=== PATIENT | male | born 1985 | race Caucasian/White ===

== ENCOUNTER 2017-12-03 05:13 | Day surgery (SDC) | payer OTHER ==
[2017-12-01 16:11] VITALS: BMI 34.9
--- NOTE | 2017-12-03 10:19 | HP ---
[facility] - Chief Complaint Chief Complaint: right hand fx - Past Medical History Allergies/Adverse Reactions: Allergies Allergy/AdvReac Type Severity Reaction Status Date / Time No Known Allergies Allergy Verified 12/01/17 16:04 - Current Medications Current Medications: Home Medications Medication Instructions Recorded Ibuprofen [Motrin -] 600 mg PO QID #28 tablet 09/20/16 Oxycodone HCl 5 mg PO 12/01/17 Satellite Physical Exam - Physical Examination General Appearance: Well Nourished, Well Developed, Alert & Oriented x3 ENT: Clear Lung: Normal air movement Heart: Regular rate & rhythm Neurological: Intact (right wrist- + swelling, + ttp, decr rom, nvi Ct scan- + 3rd and 4th CMC fx dislocation), Alert, Oriented Satellite Impression/Plan - Impression/Plan Impression: right 3rd and 4th CMC fx dislocation Operative Procedure: right 3rd and 4th CRPP Date to be Performed: 12/03/17
[2017-12-03 12:08] VITALS: TEMP 97.9
[2017-12-03] MEDS ORDERED: PROPOFOL 20 ML ONE (13:30)
[2017-12-03] MEDS ORDERED: fentaNYL CITRATE 250 MCG/5 ML VIAL ONE (14:39)
[2017-12-03] MEDS ORDERED: MIDAZOLAM HCL 2 MG/2 ML SINGLE DOSE VIAL ONE (14:39)
[2017-12-03] MEDS: KETOROLAC TROMETHAMINE 30 MG/1 ML VIAL ONE ×2 (14:40→16:40)
[2017-12-03] MEDS ORDERED: DEXAMETHASONE SOD PHOSPHATE 4 MG/1 ML VIAL ONE (14:40)
[2017-12-03] MEDS ORDERED: LIDOCAINE HCL 1%, 10 MG/ML (20ML VIAL) ONE (15:00)
[2017-12-03] MEDS ORDERED: BUPIVACAINE HCL/PF 0.5% (5MG/ML) 10 ML VIAL ONE (15:00)
[2017-12-03] MEDS ORDERED: BUPIVACAINE HCL/PF 0.25% (2.5MG/ML) 10 ML VIAL ONE (15:00)
[2017-12-03] MEDS ORDERED: ceFAZolin SODIUM 1 GM VIAL IVPB ONE (15:15)
[2017-12-03] MEDS ORDERED: LIDOCAINE HCL 1%, 10 MG/ML (20ML VIAL) INF ONE (15:30)
[2017-12-03] MEDS ORDERED: BUPIVACAINE HCL/PF 0.25% (2.5MG/ML) 10 ML VIAL IJ ONE (15:30)
--- NOTE | 2017-12-03 16:04 | OP ---
Operative Note - Note: Operative Date: 12/03/17 Pre-Operative Diagnosis: right hand 3, 4, 5 MC fractures and 4th CMC joint dislocation Operation: right hand CRPP right 4th CMC joint and 3rd and 5th Metacarpals Implants: K-wires x 4, all 0.062" Surgeon: Myron Lilly Anesthesiologist/CAT AND DOG BATHER: Coral Adrian Anesthesia: General, Local Estimated Blood Loss (mls): 5 Drains, Volume Out (mls): 0 Blood Volume Replaced (mls): 0 Fluid Volume Replaced (mls): 500 Operative Report Dictated: Yes
[2017-12-03] MEDS ORDERED: ONDANSETRON 4 MG/2 ML VIAL IVPUSH PRN (16:24)
[2017-12-03] MEDS ORDERED: oxyCODONE HCL 5 MG TABLET PO PRN ×2 (16:24)
[2017-12-03] MEDS ORDERED: ELECTROLYTE-148 SOLN 1,000 ML IV SCH (16:30)
[2017-12-03] MEDS ORDERED: KETOROLAC TROMETHAMINE 30 MG/1 ML VIAL IVPUSH ONE (17:15)
[2017-12-03] MEDS ORDERED: oxyCODONE HCL 5 MG TABLET ONE (17:43)
[2017-12-03 17:54] VITALS: BP 136/85; PULSE 63
--- NOTE | 2017-12-04 09:12 | OP ---
DATE OF OPERATION: 12/03/2017 PREOPERATIVE DIAGNOSIS: Right hand 3rd, 4th and 5th metacarpal fractures and 4th carpometacarpal joint dislocation. POSTOPERATIVE DIAGNOSIS: Right hand 3rd, 4th and 5th metacarpal fractures and 4th carpometacarpal joint dislocation. PROCEDURE: Closed reduction, percutaneous pinning, right 3rd, 4th and 5th metacarpals and closed reduction and pinning, right 4th carpometacarpal joint dislocation. SURGEON: Myron Lilly MD ASSISTANTS: None. 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 DRAINS: None. COMPLICATIONS: None. SPECIMEN: None. BLOOD LOSS: 5 mL. BLOOD GIVEN: None. FLUID REPLACEMENT: 500 mL. IMPLANTS: Four temporary 0.062 K-wires. This patient is a 32-year-old [id number] male with a preoperative diagnosis of right hand 3rd, 4th and 5th metacarpal fractures and 4th CMC joint fracture-dislocation. After understanding the potential risks, complications, alternatives and benefits of surgical versus nonsurgical treatment, the patient elected to undergo the procedure. He understands his right hand may never be quite the same. He may have a lower knuckle profile, especially of the 4th finger. He may have chronic pain in the area of the CMC joints. He may develop posttraumatic arthritis. The patient understood these and other potential risks and complications were discussed. He has elected to go forward with surgery. Patient brought to the operating room. Peripheral IV placed. IV sedation given. LMA anesthesia was induced. He was relaxed. Right upper extremity was prepped and draped in a sterile fashion. Tourniquet was not inflated. A mini C-arm fluoroscopy machine was brought in, confirming posterior dislocation of the base of the 4th metacarpal and fractures at the base of the 3rd, 4th and 5th metacarpals. With longitudinal traction on the ring finger and direct pressure on the base of the 4th metacarpal after a palpable reduction clunk, repeat x-rays were taken, documenting reduction of the dislocated 4th CMC joint. The fracture fragments also sat down in a better position. Holding the fingers in a straight extended position and pressure down on the base of the 4th metacarpal, I then put in 2 crossing percutaneous K-wires 0.062 inch in diameter under direct C-arm fluoroscopy guidance into the carpal bones. Multiple x-rays were taken, overall looked quite good and obviously reduced. Then I put in one 0.062 K-wire across the base of the 3rd metacarpal and 1 across the base of the 5th metacarpal for holding fracture fixation. Multiple x-rays were taken in AP, lateral and oblique planes. I liked the position of the fracture fragments of the previously dislocated 4th CMC joint and the hardware. The area was copiously irrigated, dried off. Marcaine 0.5% and 1% lidocaine mix, 20 mL, was injected in and around the pins in the 3rd, 4th and 5th metacarpal bases. Four pieces of Xeroform were placed at the base of the pins. Pin caps were applied. Sterile 4 x 4's were applied, fluffs between the fingers, Webril and a 4-inch Orthoglass volar splint was applied and wrapped with a Coban. No tourniquet was used. Total operative time was about 30 minutes. There were no complications during the case. The patient tolerated the procedure quite well and was brought to the ambulatory recovery room in stable condition. Edward [id number]
== END 2017-12-03 18:30 | disposition home or self-care (01) ==
LOC: JASU-SURG 05:13
PROVIDERS: ATTEND Orthopaedic Surgery
PROC: 0PSP34Z Reposition Right Metacarpal with Internal Fixation Device, Percutaneous Approach (ICD-10-PCS; 2017-12-03)
PROC: 0PSP34Z Reposition Right Metacarpal with Internal Fixation Device, Percutaneous Approach (ICD-10-PCS; 2017-12-03)
PROC: 0PSM34Z Reposition Right Carpal with Internal Fixation Device, Percutaneous Approach (ICD-10-PCS; 2017-12-03)
PROC: 0PSP34Z Reposition Right Metacarpal with Internal Fixation Device, Percutaneous Approach (ICD-10-PCS; principal; 2017-12-03 13:30)
DX: S62.392A Other fracture of third metacarpal bone, right hand, initial encounter for closed fracture (principal); S62.394A Other fracture of fourth metacarpal bone, right hand, initial encounter for closed fracture; S62.396A Other fracture of fifth metacarpal bone, right hand, initial encounter for closed fracture; S63.054A Dislocation of other carpometacarpal joint of right hand, initial encounter; X58.XXXA Exposure to other specified factors, initial encounter; Y93.9 Activity, unspecified; Y92.9 Unspecified place or not applicable; Y99.9 Unspecified external cause status
CPT/HCPCS: 76000-TC; 94760

== ENCOUNTER 2018-09-09 03:19 | Emergency (ER) | payer OTHER ==
--- NOTE | 2018-09-09 04:31 | PDOC ---
History of Present Illness - General Stated Complaint: L LEG INJURY Time Seen by Provider: 09/09/18 04:28 - History of Present Illness Initial Comments: 09/09/18 04:30 33 yo M with no significant pmh who p/w left knee pain s/p injury. Patient reports participating in football practice when another player landed on the medial aspect of his left knee at approximately 6:00 PM 09/08/18. Patient states that his foot was planted and denied popping, clicking sensation, but reports immediate sharp pain at left superior knee, and limping gait. Reports severe sharp pain at left knee, while sleep in bed at approximately 2:00 AM (). Pain with weight bearing. Denies head/neck/back trauma, or LOC. Pain not improved with ICE, Ibuprofen, and compression. Patient denies N/V, F,C, CP, SOB, urinary complaints, abdominal pain, diarrhea, constipation, lightheadedness, weakness, sensory changes. PMHx: as noted above ROS: as noted Allergies: NKDA Past History - Past Medical History Allergies/Adverse Reactions: Allergies Allergy/AdvReac Type Severity Reaction Status Date / Time hydrocodone AdvReac Intermediate Vomiting Verified 12/03/17 17:52 Home Medications: Ambulatory Orders Ibuprofen [Motrin -] 600 mg PO QID #28 tablet 09/20/16 Oxycodone HCl 5 mg PO PRN PRN 12/01/17 Hydrocodone/Acetaminophen [Vicodin 5-300 mg Tablet] 1 - 2 tab PO TID PRN #40 tablet MDD 6 12/03/17 Anemia: No Asthma: No Cancer: No Cardiac Disorders: No CVA: No COPD: No CHF: No Dementia: No Diabetes: No GI Disorders: No Disorders: No HTN: No Hypercholesterolemia: No Liver Disease: No Seizures: No Thyroid Disease: No - Suicide/Smoking/Psychosocial Hx Smoking History: Current some day smoker Have you smoked in the past 12 months: Yes Number of Cigarettes Smoked Daily: 4 'Breaking Loose' booklet given: 12/01/17 Hx Alcohol Use: Yes (occasional) Drug/Substance Use Hx: No Hx Substance Use Treatment: No Review of Systems - Review of Systems Comments:: 09/09/18 04:30 GENERAL/CONSTITUTIONAL: No fever or chills. No weakness. HEAD, EYES, EARS, NOSE AND THROAT: No change in vision. No ear pain or discharge. No sore throat. CARDIOVASCULAR: No chest pain or shortness of breath RESPIRATORY: No cough, wheezing, or hemoptysis. GASTROINTESTINAL: No nausea, vomiting, diarrhea or constipation. GENITOURINARY: No dysuria, frequency, or change in urination. MUSCULOSKELETAL: + Left knee joint swelling and pain. No neck or back pain. SKIN: No rash NEUROLOGIC: No headache, vertigo, loss of consciousness, or change in strength/ sensation. ENDOCRINE: No increased thirst. No abnormal weight change HEMATOLOGIC/LYMPHATIC: No anemia, easy bleeding, or history of blood clots. ALLERGIC/IMMUNOLOGIC: No hives or skin allergy. *Physical Exam - Physical Exam Comments: 09/09/18 04:30 GENERAL: Awake, alert, and fully oriented, in no acute distress HEAD: No signs of trauma, normocephalic, atraumatic EYES: PERRLA, EOMI, sclera anicteric, conjunctiva clear ENT: Hearing grossly normal, nares patent, oropharynx clear without exudates. Moist mucosa NECK: Normal ROM, supple, no lymphadenopathy, JVD, or masses LUNGS: No distress, speaks full sentences, clear to auscultation bilaterally HEART: Regular rate and rhythm, normal S1 and S2, no murmurs, rubs or gallops, peripheral pulses normal and equal bilaterally. EXTREMITIES : Normal inspection, Normal range of motion, no edema. No clubbing or cyanosis. LEFT KNEE: + small effusion. slightly erythematous knee. Nml joint laxity. Neg ant or post drawer. Absent varus/valgus deformity. + Superior medial ttp. Absent laceration. SKIN: Warm, Dry, normal turgor, no rashes or lesions noted Medical Decision Making - Medical Decision Making 09/09/18 04:41 33 yo M with no significant pmh who p/w left knee pain s/p injury.VSS, AF. + Left superior/medial ttp. Absent effusion. LLE neurovascularly intact. Inability to bear weight in ED. R/o fracture or dislocation of left knee. ED Course: L KNEE RAD PERCOCET 09/09/18 06:02 Patient pain stable. Able to ambulate unassisted. Preliminary read of left knee unremarkable. Normal tibiofemoral alignment, with small anterior effusion. Absent evidence of patellar fracture or dislocation. Stable for d/c with return precautions. Advised to f/u with Ortho. Crutches *DC/Admit/Observation/Transfer Diagnosis at time of Disposition: Knee sprain Qualifiers: Encounter type: initial encounter Involved ligament of knee: other ligament Laterality: left Qualified Code(s): S83.8X2A - Sprain of other specified parts of left knee, initial encounter - Discharge Dispostion Condition at time of disposition: Stable - Referrals Referrals: Ariel Mahmood MD [Staff Physician] - - Patient Instructions Printed Discharge Instructions: DI for Knee Sprain Additional Instructions: Please return to the emergency department with any new or worsening symptoms or concerns. Please follow up with your primary care physician within 72 hours. Please follow up with Orthopedics within one week. Can take Ibruprofen as needed 600 mg every 6 hours for pain. - Post Discharge Activity - Attestations Physician Attestion: 09/09/18 04:31 I attest to the information provided in this note.
[2018-09-09 04:49] VITALS: BP 116/63; PULSE 78; TEMP 98.5; BMI 34.4
--- NOTE | 2018-09-09 05:03 | PDOC ---
Attending Attestation - HPI HPI: 09/09/18 06:20 The patient is a 33 year old male with no significant pmh who presents to the ED with left knee pain s/p injury. Patient reports participating in football practice when another player landed on his left knee at approximately 6:00 PM yesterday. Patient states that his foot was planted and denied popping, clicking sensation, but reports immediate sharp pain at left superior knee, and limping gait. he reports severe sharp pain at left knee, while sleep in bed at approximately 2:00 AM this morning.he reports Pain with weight bearing. Denies head/neck/back trauma, or LOC. Pain not improved with ICE, Ibuprofen, and compression. the patient denies any other symptoms or complaints. Documentation prepared by Daniel Diaz, acting as medical coordinator pesticide use for Karen Valente MD. <Daniel Diaz - Last Filed: 09/09/18 06:20> - Resident Resident Name: Josué Gutierrez - ED Attending Attestation I have performed the following: I have examined & evaluated the patient, The case was reviewed & discussed with the resident, I agree w/resident's findings & plan, Exceptions are as noted - Physicial Exam PE: 09/10/18 06:17 GENERAL: Awake, alert, and fully oriented, in no acute distress LUNGS: No distress, speaks full sentences, clear to auscultation bilaterally HEART: Regular rate and rhythm, normal S1 and S2, no murmurs, rubs or gallops, peripheral pulses normal and equal bilaterally. EXTREMITIES : Normal inspection, Normal range of motion, no edema. No clubbing or cyanosis. LEFT KNEE: + small effusion. slightly erythematous knee. Neg ant or post drawer. Absent varus/valgus deformity. + joint effusion SKIN: Warm, Dry, normal turgor, no rashes or lesions noted - Medical Decision Making 09/10/18 06:18 xray demonstrates no fracture Will jennifer wrap Will discharge to home with pain medications <Karen Valente - Last Filed: 09/10/18 06:18>
== END 2018-09-09 06:31 | disposition home or self-care (01) ==
LOC: JER 03:19
DX: S83.8X2A Sprain of other specified parts of left knee, initial encounter (principal); F17.210 Nicotine dependence, cigarettes, uncomplicated
CPT/HCPCS: 73562-TC-LT-FY; 99281-25

== ENCOUNTER 2020-01-07 18:17 | Emergency (ER) | payer OTHER ==
[2020-01-07 18:28] VITALS: BP 142/92; PULSE 92; TEMP 97.9; BMI 34.5
[2020-01-07] MEDS ORDERED: IBUPROFEN 600 MG TABLET (FP) PO ONE ×2 (18:50→18:53)
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
== END 2020-01-07 18:56 | disposition home or self-care (01) ==
LOC: JERFT 18:17
DX: S93.402A Sprain of unspecified ligament of left ankle, initial encounter (principal); V29.88XA Motorcycle rider (driver) (passenger) injured in other specified transport accidents, initial encounter; Y92.410 Unspecified street and highway as the place of occurrence of the external cause; Y93.89 Activity, other specified; Y99.8 Other external cause status; F17.210 Nicotine dependence, cigarettes, uncomplicated; Z88.5 Allergy status to narcotic agent
CPT/HCPCS: 73610-TC-LT-FY; 73630-TC-LT; 99283-25